=== PATIENT | female | born 1960 | race African-American/Black ===

== ENCOUNTER 2016-11-09 11:50 | Inpatient (IN) | payer MEDICAID ==
[~2016-11-09] VITALS: Ht 162.6 cm; Wt 74.4 kg
[2016-11-09] MEDS ORDERED: ONDANSETRON 4 MG VIAL ONE ×2 (12:31→15:13)
[2016-11-09] MEDS ORDERED: SODIUM CHLORIDE 0.9% 1,000 ML ONE (12:31)
[2016-11-09] MEDS ORDERED: Meclizine HCl 25 MG TAB ONE (12:50)
[2016-11-09] MEDS ORDERED: CEFTRIAXONE 1 GM VIAL ONE ×2 (14:25→15:13)
[2016-11-09] MEDS ORDERED: SODIUM CHLORIDE 0.9% 100 ML IV ONE ×2 (14:25→15:14)
[2016-11-09] MEDS ORDERED: DIAZEPAM 10 MG/2 ML SYR ONE (15:13)
[2016-11-09] MEDS ORDERED: LABETALOL 100 MG/20 ML VIAL ONE (15:13)
[2016-11-09] MEDS ORDERED: MAGNEVIST 15ML IV ONE (16:59)
[2016-11-09 17:48] VITALS: BP_SYST 181; RESP 18; TEMP 98.3
[2016-11-09 18:00] VITALS: BP_SYST 190
[2016-11-09 18:13] VITALS: BMI 28.2
[2016-11-09] MEDS ORDERED: SALINE FLUSH 10 ML FLUSH PRN (18:35)
[2016-11-09] MEDS ORDERED: DEXTROSE 50% SYRINGE 50 ML IV PRN (18:35)
[2016-11-09] MEDS ORDERED: ACETAMINOPHEN 325 MG TAB PO PRN (18:35)
[2016-11-09] MEDS ORDERED: GLUCAGON 1 MG VIAL IM PRN (18:35)
[2016-11-09] MEDS: SALINE FLUSH 10 ML FLUSH SCH (20:00)
[2016-11-09 20:05] VITALS: BP_SYST 180; TEMP 98.4
[2016-11-09] MEDS: SODIUM CHLORIDE 0.9% 1,000 ML IV SCH (20:33)
[2016-11-09] MEDS: CARVEDILOL 25 MG TAB PO SCH (20:50)
[2016-11-09] MEDS: Atorvastatin 20 MG TAB PO SCH (20:50)
[2016-11-09 21:58] VITALS: BP_SYST 163; TEMP 98.5
[2016-11-09 22:27] VITALS: RESP 20
[2016-11-10] VITALS (12 sets, daily range): BP systolic 131–184; RESP 18–20; TEMP 97.9–99.3; Ht 162.6 cm; Wt 74.4 kg
[2016-11-10] MEDS: SODIUM CHLORIDE 0.9% 1,000 ML IV SCH ×2 (02:16→13:54)
[2016-11-10] MEDS: SODIUM CHLORIDE 0.9% FLUSH BAG 500 ML IV SCH (05:19)
[2016-11-10] MEDS: SALINE FLUSH 10 ML FLUSH SCH ×2 (08:00→20:00)
[2016-11-10] MEDS: amLODIPine 10 MG TAB PO SCH (08:05)
[2016-11-10] MEDS: Aspirin 325 MG TAB PO SCH (08:05)
[2016-11-10] MEDS: CARVEDILOL 25 MG TAB PO SCH ×2 (08:05→22:41)
[2016-11-10] MEDS: TRIAMTER/HCTZ 37.5/25MG TAB PO SCH (08:05)
[2016-11-10] MEDS: ENOXAPARIN 40 MG/0.4 ML SYR SUBQ SCH (08:05)
[2016-11-10] MEDS ORDERED: DEXTROSE 50% SYRINGE 50 ML IV PRN (12:00)
[2016-11-10] MEDS ORDERED: INSULIN DRIP 1 UNIT/ML 100 ML IV SCH (12:00)
[2016-11-10] MEDS ORDERED: LEVEMIR INSULIN SUBQ ONE (13:15)
[2016-11-10] MEDS ORDERED: SODIUM CHLORIDE 0.9% 1,000 ML IV SCH (15:10)
[2016-11-10] MEDS: Atorvastatin 20 MG TAB PO SCH (22:41)
[2016-11-11] VITALS (11 sets, daily range): BP systolic 144–174; RESP 18; TEMP 97.2–98.2
[2016-11-11] MEDS: SODIUM CHLORIDE 0.9% FLUSH BAG 500 ML IV SCH (05:12)
[2016-11-11] MEDS: SALINE FLUSH 10 ML FLUSH SCH (08:00)
[2016-11-11] MEDS: amLODIPine 10 MG TAB PO SCH (08:14)
[2016-11-11] MEDS: ENOXAPARIN 40 MG/0.4 ML SYR SUBQ SCH (08:14)
[2016-11-11] MEDS: CARVEDILOL 25 MG TAB PO SCH (08:14)
[2016-11-11] MEDS: TRIAMTER/HCTZ 37.5/25MG TAB PO SCH (08:14)
[2016-11-11] MEDS: Aspirin 325 MG TAB PO SCH (08:14)
[2016-11-11] MEDS ORDERED: CLOPIDOGREL 75 MG TAB PO SCH (10:10)
[2016-11-11] MEDS ORDERED: LISINOPRIL 5 MG TAB PO SCH (10:10)
[2016-11-11] MEDS ORDERED: Atorvastatin 40 MG TAB PO SCH (21:00)
[2016-11-12] MEDS ORDERED: ASPIRIN EC 81 MG TAB PO SCH (09:00)
== END 2016-11-11 20:02 | DRG 65 ==
LOC: ENRESERVTM → ENRESERVDT → ER 11:50 → EMR 16:19 → ENPENDDIS 16:19 → PCU 17:52 → UNDODISIN 11-10 16:07
PROVIDERS: ADMIT Family Medicine; ATTEND Family Medicine
DX: I63.9 Cerebral infarction, unspecified (principal); I69.351 Hemiplegia and hemiparesis following cerebral infarction affecting right dominant side; E11.65 Type 2 diabetes mellitus with hyperglycemia; I10 Essential (primary) hypertension; R47.1 Dysarthria and anarthria; Z79.4 Long term (current) use of insulin; Z79.84 Long term (current) use of oral hypoglycemic drugs; G51.0 Bell's palsy; E78.00 Pure hypercholesterolemia, unspecified; Z79.82 Long term (current) use of aspirin; Z87.891 Personal history of nicotine dependence
CPT/HCPCS: 36415; 54235; 70450; 70544; 70548; 70553; 80053; 80061; 81001; 82553; 82947; 83690; 84484; 85025; 85610; 85730; 87088; 93005; 93306; 94799; 96361; 96365; 96372; 99222; 99233; 99239